=== PATIENT | female | born 1995 | race American Indian/Alaskan Native ===

== ENCOUNTER 2019-12-24 07:00 | Inpatient (IN) | payer MEDICAID ==
[2019-12-24] MEDS ORDERED: Misoprostol 25 MCG (1/4 of 100 MCG) Tab VAG ONE (07:29)
[2019-12-24] MEDS ORDERED: diphenhydrAMINE 50 MG Cap PO PRN (07:29)
[2019-12-24] MEDS ORDERED: Misoprostol 25 MCG (1/4 of 100 MCG) Tab ONE (07:48)
[2019-12-24] MEDS: Sodium Chloride 0.9% 10 ML Syringe FLUSH PRN ×2 (09:00→12:30)
[2019-12-24] MEDS ORDERED: Lactated Ringers 1,000 ML IV ONE (09:05)
[2019-12-24] MEDS ORDERED: Ampicillin 2 GM in Sodium Chloride 0.9% 100 ML IV ONE (12:00)
[2019-12-24] MEDS ORDERED: Lactated Ringers 1,000 ML IV SCH (13:30)
[2019-12-24] MEDS ORDERED: ePHEDrine 50 MG/ML SDV ONE (13:37)
[2019-12-24] MEDS ORDERED: Naloxone 0.4 MG/ML SDV ONE (13:37)
[2019-12-24] MEDS ORDERED: Lactated Ringers 500 ML IV SCH (14:00)
[2019-12-24] MEDS ORDERED: ROPIVACAINE HCL SCH (14:00)
[2019-12-24] MEDS ORDERED: Naloxone 0.4 MG/ML SDV IVPUSH PRN (14:00)
[2019-12-24] MEDS ORDERED: FENTANYL SCH (14:00)
[2019-12-24] MEDS ORDERED: hydrOXYzine HCl 50 MG/ML SDV IM PRN (14:00)
[2019-12-24] MEDS ORDERED: diphenhydrAMINE 50 MG/ML SDV IV PRN (14:00)
[2019-12-24] MEDS ORDERED: ePHEDrine 50 MG/ML SDV IVPUSH PRN (14:00)
[2019-12-24] MEDS ORDERED: Ondansetron 4 MG/2 ML SDV IVPUSH PRN (14:00)
[2019-12-24] MEDS ORDERED: Oxytocin 10 Units/1 ML SDV IM ONE (16:35)
[2019-12-24] MEDS ORDERED: Acetaminophen/Codeine 300-30 MG Tab PO PRN (16:41)
--- NOTE | 2019-12-24 16:48 | PCM.DEL ---
L & D Note - General Info Date of Service: 12/24/19 Mother's Due Date: 01/04/20 - Delivery Note Labor: Induced by ARM Cervical Ripening Method: Misoprostil Delivery Outcome: Livebirth Delivery Method: Spontaneous Vaginal Delivery-Single Presentation: Right Occiput Anterior (BALTA) Nuchal Cord: None Prep: Povidone-Iodine (Betadine Anesthesia Type: Epidural Amniotic Fluid Description: Clear Episiotomy Type: None Laceration: None Placenta: Intact, Spontaneous Cord: 3 Vessels Resuscitation Needed: No [place]: Suctioned, Stimulated, [place] Used, Warmer Used Score 1 min: 8 Score 5 min: 8 Second Stage Interventions: Reports: Second Nurse Assessed Progress of Descent, Second Nurse Reviewed Contraction Pattern, Encouragement Given, Laboring Down, Pushing Effectively, Pushing, Birthing Stool, Pushing, McRobert's Position Induction Criteria - Shrestha Score Shrestha Score Dilation: Closed Shreshta Score Consistency: Firm Shrestha Score Cervix Position: Midposition Shrestha Score Presenting Part: Reports: Cephalic - Induction Gestational Age >/= 39 wks: No Medical Indication: Cholestasis of with intractable pruritus Estimated Pelvis: Reports: Adequate, Borderline Reassuring Monitoring Strip: Yes Absence of Tachy Systole: Yes - Augmentation Estimated Pelvis: Reports: Adequate - General Info Date of Service: 12/24/19 Admission Dx/Problem (Free Text): Patient admitted for Cytotec induction due to intense pruritus secondary to Cholestasis of - Review of Systems General: Reports: No Symptoms HEENT: Reports: No Symptoms Pulmonary: Reports: No Symptoms Cardiovascular: Reports: No Symptoms Gastrointestinal: Reports: No Symptoms Genitourinary: Reports: No Symptoms Musculoskeletal: Reports: No Symptoms Skin: Reports: No Symptoms Neurological: Reports: No Symptoms Psychiatric: Reports: No Symptoms - Patient Data Vitals - Most Recent: Last Vital Signs Temp Pulse 95 12/24/19 15:20 Resp BP 103/56 L 12/24/19 14:33 Pulse Ox 99 12/24/19 13:27 Weight - Most Recent: 72.121 kg Med Orders - Current: Current Medications Acetaminophen/Codeine Phosphate (Tylenol With Codeine No.3 300mg/30mg) 1 tab PO Q4H PRN PRN Reason: Pain (moderate 4-6) Diphenhydramine HCl (Benadryl) 50 mg PO Q6H PRN PRN Reason: Itching Last Admin: 12/24/19 07:42 Dose: 50 mg Diphenhydramine HCl (Benadryl) 25 mg IV ASDIRECTED PRN PRN Reason: Pruritus Ephedrine Sulfate (Ephedrine Sulfate) 5 mg IVPUSH ASDIRECTED PRN PRN Reason: Hypotension Hydroxyzine HCl (Vistaril) 25 mg IM Q6H PRN PRN Reason: Pruritus Ampicillin Sodium 1 gm/ Sodium (Chloride) 50 mls @ 100 mls/hr IV Q6H CHRISTY Lactated Ringer's (Ringers, Lactated) 1,000 mls @ 999 mls/hr IV BOLUS CHRISTY Ibuprofen (Motrin) 600 mg PO Q4H PRN PRN Reason: Pain Naloxone HCl (Narcan) 0.1 mg IVPUSH ONETIME PRN PRN Reason: Sedation Ondansetron HCl (Zofran) 4 mg IVPUSH Q6H PRN PRN Reason: Nausea/Vomiting Sodium Chloride (Saline Flush) 10 ml FLUSH ASDIRECTED PRN PRN Reason: Keep Vein Open Last Admin: 12/24/19 12:30 Dose: 10 ml Discontinued Medications Ephedrine Sulfate (Ephedrine Sulfate) Confirm Administered Dose 50 mg .ROUTE .STK-MED ONE Stop: 12/24/19 13:38 Lactated Ringer's (Ringers, Lactated) 1,000 mls @ 999 mls/hr IV BOLUS ONE Stop: 12/24/19 10:05 Last Admin: 12/24/19 09:20 Dose: 999 mls/hr Ampicillin Sodium 2 gm/ Sodium (Chloride) 100 mls @ 200 mls/hr IV ONETIME ONE Stop: 12/24/19 12:29 Last Admin: 12/24/19 12:29 Dose: 200 mls/hr Misoprostol (Cytotec) 25 mcg VAG ONETIME ONE Stop: 12/24/19 07:30 Last Admin: 12/24/19 07:43 Dose: 25 mcg Misoprostol (Cytotec) Confirm Administered Dose 25 mcg .ROUTE .STK-MED ONE Stop: 12/24/19 07:49 Last Admin: 12/24/19 12:35 Dose: Not Given Naloxone HCl (Narcan) Confirm Administered Dose 0.4 mg .ROUTE .STK-MED ONE Stop: 12/24/19 13:38 - Exam General: Alert, Oriented HEENT: Pupils Equal, Pupils Reactive, EOMI, Mucous Membr. Moist/[place] Neck: Supple Lungs: Clear to Auscultation, Normal Respiratory Effort Cardiovascular: Regular Rate, Regular Rhythm GI/Abdominal Exam: Normal Bowel Sounds, Soft, Non-Tender, No Organomegaly, No Distention, No Abnormal Bruit, No Mass, Pelvis Stable (Female) Exam: Normal External Exam, Normal Speculum Exam, Normal Bimanual Exam Back Exam: Normal Inspection, Full Range of Motion Extremities: Normal Inspection, Normal Range of Motion, Non-Tender, No Pedal Edema, Normal Capillary Refill Skin: Warm, Dry, Intact Wound/Incisions: Healing Well Neurological: No New Focal Deficit Psy/Mental Status: Alert, Normal Affect, Normal Mood - Problem List & Annotations (1) Cholestasis during SNOMED Code(s): 218573973 Code(s): O26.619 - LIVER AND BILIARY TRACT DISORD IN , UNSP TRIMESTER; K83.1 - OBSTRUCTION OF BILE DUCT Status: Acute Current Visit: Yes (2) Encounter for elective induction of labor SNOMED Code(s): 218782877 Code(s): Z34.90 - ENCNTR FOR SUPRVSN OF NORMAL , UNSP, UNSP TRIMESTER Status: Acute Current Visit: Yes (3) Delivery normal SNOMED Code(s): 13515447, 584761566 Code(s): O80 - ENCOUNTER FOR FULL-TERM UNCOMPLICATED DELIVERY Status: Acute Current Visit: Yes (4) Group B streptococcal infection during SNOMED Code(s): 392693998 Code(s): O98.819 - OTH MATERNAL INFEC/PARASTC DISEASES COMP PREG, UNSP TRI; B95.1 - STREPTOCOCCUS, GROUP B, CAUSING DISEASES CLASSD ELSWHR Status: Acute Current Visit: Yes (5) Tobacco use during , delivered SNOMED Code(s): 017361937, 470613652 Code(s): O99.334 - SMOKING (TOBACCO) COMPLICATING CHILDBIRTH Status: Acute Current Visit: Yes - Problem List Review Problem List Initiated/Reviewed/Updated: Yes - My Orders Last 24 Hours: My Active Orders 12/24/19 07:12 Monitoring [RC] CONTINUOUS 12/24/19 07:29 diphenhydrAMINE [Benadryl] 50 mg PO Q6H PRN 12/24/19 09:04 Sodium Chloride 0.9% [Saline Flush] 10 ml FLUSH ASDIRECTED PRN Peripheral IV Insertion Adult [OM.PC] Routine 12/24/19 16:30 Ampicillin 1 gm Sodium Chloride 0.9% [Normal Saline] 50 ml IV Q6H 12/24/19 16:41 Patient Status [ADT] Routine Urinary Catheter Assessment [RC] QSHIFT Vital Signs [RC] PFP Acetaminophen/Codeine [Tylenol with Codeine No.3 300MG/30MG] 1 tab PO Q4H PRN Ibuprofen [Motrin] 600 mg PO Q4H PRN 12/24/19 Breakfast Regular Diet [DIET] 12/25/19 05:11 CBC WITH AUTO DIFF [HEME] AM - Plan Plan:: Admit to LD unit.CBC in AM. Observe.
[2019-12-24] MEDS ORDERED: fentaNYL 400 MCG in Ropivacaine HCl/PF 200 ML IV ONE (18:19)
[2019-12-24] MEDS: Ampicillin 1 GM in Sodium Chloride 0.9% 50 ML IV SCH (18:59)
[2019-12-24] MEDS: Ibuprofen 600 MG Tab PO PRN (22:44)
[2019-12-25] MEDS: Ampicillin 1 GM in Sodium Chloride 0.9% 50 ML IV SCH (00:50)
[2019-12-25] MEDS: Ibuprofen 600 MG Tab PO PRN ×2 (07:05→15:40)
--- NOTE | 2019-12-25 16:39 | PCM.PNPP ---
- General Info Date of Service: 12/25/19 Functional Status: Reports: Pain Controlled - Review of Systems General: Reports: No Symptoms HEENT: Reports: No Symptoms Pulmonary: Reports: No Symptoms Cardiovascular: Reports: No Symptoms Gastrointestinal: Reports: No Symptoms Genitourinary: Reports: No Symptoms Musculoskeletal: Reports: No Symptoms Skin: Reports: No Symptoms Neurological: Reports: No Symptoms Psychiatric: Reports: No Symptoms - General Info Date of Service: 12/25/19 - Patient Data Vital Signs - Most Recent: Last Vital Signs Temp Pulse 91 12/24/19 18:46 Resp BP 104/49 L 12/24/19 18:46 Pulse Ox 99 12/24/19 13:27 Weight - Most Recent: 72.121 kg Lab Results - Last 24 Hours: Laboratory Results - last 24 hr 12/25/19 Range/Units 06:15 WBC 12.3 H (4.5-12.0) X10-3/uL RBC 3.90 (3.23-5.20) x10(6)uL Hgb 11.4 L (11.5-15.5) g/dL Hct 33.8 (30.0-51.3) % MCV 86.8 (80-96) fL MCH 29.3 (27.7-33.6) pg MCHC 33.8 (32.2-35.4) g/dL RDW 12.2 (11.5-15.5) % Plt Count 288 (125-369) X10(3)uL MPV 8.0 (7.4-10.4) fL Neut % (Auto) 68.8 (46-82) % Lymph % (Auto) 22.0 (13-37) % [place] % (Auto) 5.6 (4-12) % Eos % (Auto) 3 (1.0-5.0) % Baso % (Auto) 0 (0-2) % Neut # (Auto) 8.4 H (1.6-8.3) # Lymph # (Auto) 2.7 (0.6-5.0) # [place] # (Auto) 0.7 (0.0-1.3) # Eos # (Auto) 0.4 (0.0-0.8) # Baso # (Auto) 0.0 (0.0-0.2) # Med Orders - Current: Current Medications Acetaminophen/Codeine Phosphate (Tylenol With Codeine No.3 300mg/30mg) 1 tab PO Q4H PRN PRN Reason: Pain (moderate 4-6) Last Admin: 12/25/19 11:01 Dose: 1 tab Diphenhydramine HCl (Benadryl) 50 mg PO Q6H PRN PRN Reason: Itching Last Admin: 12/24/19 07:42 Dose: 50 mg Diphenhydramine HCl (Benadryl) 25 mg IV ASDIRECTED PRN PRN Reason: Pruritus Hydroxyzine HCl (Vistaril) 25 mg IM Q6H PRN PRN Reason: Pruritus Ibuprofen (Motrin) 600 mg PO Q4H PRN PRN Reason: Pain Last Admin: 12/25/19 15:40 Dose: 600 mg Naloxone HCl (Narcan) 0.1 mg IVPUSH ONETIME PRN PRN Reason: Sedation Ondansetron HCl (Zofran) 4 mg IVPUSH Q6H PRN PRN Reason: Nausea/Vomiting Sodium Chloride (Saline Flush) 10 ml FLUSH ASDIRECTED PRN PRN Reason: Keep Vein Open Last Admin: 12/24/19 12:30 Dose: 10 ml Discontinued Medications Ephedrine Sulfate (Ephedrine Sulfate) Confirm Administered Dose 50 mg .ROUTE .STK-MED ONE Stop: 12/24/19 13:38 Last Admin: 12/24/19 18:58 Dose: Not Given Ephedrine Sulfate (Ephedrine Sulfate) 5 mg IVPUSH ASDIRECTED PRN PRN Reason: Hypotension Lactated Ringer's (Ringers, Lactated) 1,000 mls @ 999 mls/hr IV BOLUS ONE Stop: 12/24/19 10:05 Last Admin: 12/24/19 09:20 Dose: 999 mls/hr Ampicillin Sodium 2 gm/ Sodium (Chloride) 100 mls @ 200 mls/hr IV ONETIME ONE Stop: 12/24/19 12:29 Last Admin: 12/24/19 12:29 Dose: 200 mls/hr Ampicillin Sodium 1 gm/ Sodium (Chloride) 50 mls @ 100 mls/hr IV Q6H CHRISTY Last Admin: 12/25/19 00:50 Dose: Not Given Lactated Ringer's (Ringers, Lactated) 1,000 mls @ 999 mls/hr IV BOLUS CHRISTY Lactated Ringer's (Ringers, Lactated) 1,000 mls @ 125 mls/hr IV ASDIRECTED CHRISTY Last Admin: 12/24/19 19:38 Dose: 125 mls/hr Misoprostol (Cytotec) 25 mcg VAG ONETIME ONE Stop: 12/24/19 07:30 Last Admin: 12/24/19 07:43 Dose: 25 mcg Misoprostol (Cytotec) Confirm Administered Dose 25 mcg .ROUTE .STK-MED ONE Stop: 12/24/19 07:49 Last Admin: 12/24/19 12:35 Dose: Not Given Naloxone HCl (Narcan) Confirm Administered Dose 0.4 mg .ROUTE .STK-MED ONE Stop: 12/24/19 13:38 Last Admin: 12/24/19 18:58 Dose: Not Given Oxytocin (Pitocin) 10 unit IM ONETIME ONE Stop: 12/24/19 16:36 Last Admin: 12/24/19 16:35 Dose: 10 unit - Interaction Support Person: Mother, Significant Other - Recovery Exam Fundal Tone: Firm Fundal Level: 3 Fingerbreadths Below Umbilicus Fundal Placement: Midline Lochia Amount: Moderate Lochia Color: Rubra/Red Perineum Description: Intact, Minimal Bruising/Swelling Episiotomy/Laceration: None - Exam General: Alert, Oriented HEENT: Pupils Equal Neck: Supple Lungs: Clear to Auscultation, Normal Respiratory Effort Cardiovascular: Regular Rate, Regular Rhythm GI/Abdominal Exam: Normal Bowel Sounds, Soft, Non-Tender, No Organomegaly, No Distention, No Abnormal Bruit, No Mass, Pelvis Stable Extremities: Normal Inspection, Normal Range of Motion, Non-Tender, No Pedal Edema, Normal Capillary Refill Skin: Warm, Dry, Intact Wound/Incisions: Healing Well Neurological: No New Focal Deficit Psy/Mental Status: Alert, Normal Affect, Normal Mood - Problem List & Annotations (1) Cholestasis during SNOMED Code(s): 120395864 Code(s): O26.619 - LIVER AND BILIARY TRACT DISORD IN , UNSP TRIMESTER; K83.1 - OBSTRUCTION OF BILE DUCT Status: Acute (2) Encounter for elective induction of labor SNOMED Code(s): 806146583 Code(s): Z34.90 - ENCNTR FOR SUPRVSN OF NORMAL , UNSP, UNSP TRIMESTER Status: Acute (3) Delivery normal SNOMED Code(s): 15223086, 668231916 Code(s): O80 - ENCOUNTER FOR FULL-TERM UNCOMPLICATED DELIVERY Status: Acute (4) Group B streptococcal infection during SNOMED Code(s): 277833644 Code(s): O98.819 - OTH MATERNAL INFEC/PARASTC DISEASES COMP PREG, UNSP TRI; B95.1 - STREPTOCOCCUS, GROUP B, CAUSING DISEASES CLASSD ELSWHR Status: Acute (5) Tobacco use during , delivered SNOMED Code(s): 871517098, 735746755 Code(s): O99.334 - SMOKING (TOBACCO) COMPLICATING CHILDBIRTH Status: Acute - Problem List Review Problem List Initiated/Reviewed/Updated: Yes - My Orders Last 24 Hours: My Active Orders 12/24/19 16:41 Patient Status [ADT] Routine Vital Signs [RC] PFP Acetaminophen/Codeine [Tylenol with Codeine No.3 300MG/30MG] 1 tab PO Q4H PRN Ibuprofen [Motrin] 600 mg PO Q4H PRN - Plan Plan:: Wants to go home.DC home today
== END 2019-12-25 18:20 | disposition home or self-care (01) | DRG 805 ==
LOC: FB.OB 07:00 → FB.OBCHECK 07:00 → FB.OB 07:01 → FB.OBCHECK 07:11 → FB.OB 07:11 → UNDOADMOB 07:12 → FB.OB 07:12 → EDSTATUS 09:22 → OBSVTOIN 15:51
PROVIDERS: ADMIT Family Medicine; ATTEND Family Medicine
PROC: 10E0XZZ Delivery of Products of Conception, External Approach (ICD-10-PCS; principal; 2019-12-24)
PROC: 3E0P7VZ Introduction of Hormone into Female Reproductive, Via Natural or Artificial Opening (ICD-10-PCS; 2019-12-24)
PROC: 10907ZC Drainage of Amniotic Fluid, Therapeutic from Products of Conception, Via Natural or Artificial Opening (ICD-10-PCS; 2019-12-24)
PROC: 3E0S3BZ Introduction of Anesthetic Agent into Epidural Space, Percutaneous Approach (ICD-10-PCS; 2019-12-24)
DX: O26.62 Liver and biliary tract disorders in childbirth (principal); K83.1 Obstruction of bile duct; Z37.0 Single live birth; Z3A.37 37 weeks gestation of pregnancy; O99.824 Streptococcus B carrier state complicating childbirth; O99.334 Smoking (tobacco) complicating childbirth; F17.210 Nicotine dependence, cigarettes, uncomplicated
CPT/HCPCS: 36415; 59409; 85025; A9270-GY; J0290; J2590; J2795; J3010; J7050; J7120